=== PATIENT | female | born 1955 | race Hispanic/Latino ===

== ENCOUNTER 2017-04-15 08:00 | Inpatient (IN) | payer OTHER ==
[2017-04-23] MEDS ORDERED: Levofloxacin 500 mg/D5W 100 ml Premix Bag ONE (09:51)
[2017-04-23] MEDS ORDERED: Heparin 5,000 UNITS/ML VIAL ONE (09:51)
[2017-04-23] MEDS ORDERED: Clindamycin/D5W 900 mg/50 ml Premix Bag ONE (10:57)
[2017-04-23] MEDS ORDERED: Fentanyl 100 MCG/2 ML VIAL ONE ×2 (11:18→13:22)
[2017-04-23] MEDS ORDERED: Midazolam HCl 2 mg/2 ml Vial ONE (11:18)
[2017-04-23] MEDS ORDERED: Bupivacaine/Epinephrine 0.25% 30 ML VIAL ONE (11:20)
[2017-04-23] MEDS ORDERED: Ketorolac Tromethamine 30 MG/ML VIAL ONE (11:51)
[2017-04-23] MEDS ORDERED: Glycopyrrolate 0.2 MG/ML 5 ML SYRINGE ONE (11:51)
[2017-04-23] MEDS ORDERED: Ondansetron HCl/PF 4 MG/2 ML Vial ONE (11:51)
[2017-04-23] MEDS ORDERED: Dexamethasone 20 MG/5 ML VIAL ONE (11:51)
[2017-04-23] MEDS ORDERED: PHENYLEPHRINE-NS 100 MCG/ML 10 ML SYRINGE ONE (11:51)
[2017-04-23] MEDS ORDERED: Propofol 200 MG/20 ML VIAL ONE (11:51)
[2017-04-23] MEDS ORDERED: HYDROmorphone 2 MG/ML VIAL SLOW IVP PRN (13:44)
[2017-04-23] MEDS ORDERED: Promethazine HCl 25 MG/ML VIAL SLOW IVP PRN (13:44)
[2017-04-23] MEDS ORDERED: Promethazine HCl 25 MG/ML VIAL IM PRN ×3 (13:44→14:18)
[2017-04-23] MEDS ORDERED: Ondansetron HCl/PF 4 MG/2 ML Vial IVP PRN ×3 (13:44→14:18)
[2017-04-23] MEDS ORDERED: Zolpidem Tartrate 5 MG TAB PO PRN (13:45)
[2017-04-23] MEDS ORDERED: diphenhydrAMINE HCl 50 MG/ML 1 ML VIAL IVP PRN ×2 (13:45→14:18)
[2017-04-23] MEDS ORDERED: diphenhydrAMINE HCl 50 MG/ML 1 ML VIAL IM PRN (13:45)
[2017-04-23] MEDS ORDERED: Communication Order-Pharmacy FS SCH (13:45)
[2017-04-23] MEDS ORDERED: Fentanyl 5000 MCG/250 ML CADD IVPB PRN (13:45)
[2017-04-23] MEDS ORDERED: Naloxone HCl 0.4 mg/ml Vial IV PRN (13:45)
[2017-04-23] MEDS ORDERED: diphenhydrAMINE HCl 25 MG CAP PO PRN (13:45)
[2017-04-23] MEDS ORDERED: Fentanyl 20 MCG/ML 250 ML ONE (13:48)
[2017-04-23] MEDS ORDERED: Hydrocodone-Acetamin 15 ML UDCUP PO PRN (14:18)
[2017-04-23] MEDS ORDERED: Dextrose 50% Abboject 50 ML SYRINGE SLOW IVP PRN (14:18)
[2017-04-23] MEDS ORDERED: Dextrose 5% in Water 1,000 ML IV PRN (14:18)
[2017-04-23] MEDS: D5 1/2 NS w/20 mEq KCL 1,000 ML IV SCH ×2 (14:49→20:58)
[2017-04-23 15:53] VITALS: BMI 35.9
[2017-04-23] MEDS: Acetaminophen 1,000 MG in Premix Bag 1 BAG IVPB SCH (18:11)
[2017-04-23] MEDS: Enoxaparin Sodium 40 MG/0.4 ML SYRINGE SC SCH (20:50)
--- NOTE | 2017-04-23 23:39 | OP ---
DATE OF PROCEDURE: 04/23/2017 PREOPERATIVE DIAGNOSES: 1. Morbid obesity with the BMI of 37. 2. Hypertension. POSTOPERATIVE DIAGNOSES: 1. Morbid obesity with the BMI of 37. 2. Hypertension. 3. Hiatal hernia, paraesophageal. PROCEDURES PERFORMED: 1. Laparoscopic sleeve gastrectomy with [place] staple line reinforcements and 38 [place] bougie. 2. Hiatal hernia repair without fundoplication. SURGEON: Goran Garcia M.D. ANESTHESIA: General. ESTIMATED BLOOD LOSS: Minimal. COMPLICATIONS: None. SPECIMEN: Stomach. FINDINGS: There was a hiatal hernia present, repaired with 38 [place] bougie. INDICATION: The patient is a 62-year-old female who presents with a history of morbid obesity assoc iated with hypertension. She has attended our weight loss seminar. She had psychologic evaluation a s well as our preoperative education classes. She understands risks, benefits, alternatives to surg vinny for weight loss. She gives consent. TECHNIQUE: The patient was taken to the operating room and placed supine on the table. After gener al anesthetic was obtained, arms and legs were double strapped to bariatric table. Her abdomen was prepped and draped in a sterile fashion. Left subcostal 5-mm Optiview trocar was placed in the usua l fashion. High-flow pneumoperitoneum was obtained. Left and right abdominal 12-mm port and a righ t subcostal 5-mm port were all placed under direct visualization. A 5-mm incision was made at the x iphoid and the Yrn used to raise the liver off the GE junction. Short gastrics were taken gloria n from mid body of stomach to the left mita of the diaphragm using LigaSure. Short gastrics were ta chilango down to the distance of 6 cm proximal to the pylorus. Left mita angle of His was completely dis sected, revealing a hiatal hernia. The gastrohepatic ligament was entered and dissection was perfor med along the right mita of the diaphragm as well. The mediastinum was entered and circumferential dissection of the esophagus was performed. A 38-bougie was brought in and its tip left in the antru m of the stomach. There was a replaced right hepatic artery that was left in place and not ligated. After placement of the bougie, the posterior fascia was closed using 2-0 Ethibond sutures in a tricia e out system. Multiple loads of an [place] stapling device were used to perform the gastric sleeve. The first was a green load fired up to a distance of 6 cm proximal to the pylorus angled up toward s the incisura, multiple loads were then fired up along the bougie. Multiple loads were then fired up along the bougie. Stomach was completely transected at the angle of His. The stomach was remove d from left abdominal incision. This fascial defect was closed using GraNee needle and 0 Vicryl ti e. All port sites were infiltrated using local anesthetic. There was no bleeding on the staple june e. EGD scope was passed from the esophagus, stomach to the level of the duodenum without obstructio n, withdrawn into the stomach to reveal no stricture, no evidence of air leakage through the staple line. EGD scope was used to decompress the stomach, was pulled and removed. The Yrn retracto r was removed from the abdomen under direct visualization without bleeding. All ports were removed under direct visualization. Pneumoperitoneum was let down. Vicryl was used to close the fascial de fect from left abdominal incisions. All incisions were irrigated and closed using 4-0 Monocryl and Dermabond. The patient was en route to recovery in stable condition. All instrument counts, needle counts, and lap counts were correct.
[2017-04-24] MEDS: Acetaminophen 1,000 MG in Premix Bag 1 BAG IVPB SCH ×2 (00:16→05:54)
[2017-04-24 05:10] LABS: #Monocytes 1.2 thou/uL (0.11-0.59); #Neutrophils 9.2 thou/uL (1.40-6.50); %Basophils 0.1 % (0.0-1.0); %Eosinophils 0.2 % (0.0-10.0); %Lymphocytes 8.5 % (21.0-51.0); %Monocytes 10.7 % (0.0-10.0); Hematocrit 39.1 % (36.0-47.0); Mean Platelet Volume 8.2 fL (7.4-10.4); Red Blood Cell (RBC) Count 3.85 mill/uL (4.20-5.40); White Blood Cell (WBC) Count 11.4 thou/uL (4.8-10.8)
[2017-04-24 05:18] LABS: Anion Gap 10 mmol/L (10-20); BUN (Urea Nitrogen) 10 mg/dL (9.8-20.1); Calc. Creatinine Clearance 93 mL/min (70-130); Calcium 9.1 mg/dL (7.8-10.44); Carbon Dioxide 24 mmol/L (22-29); Chloride 107 mmol/L (98-107); Estimated GFR-MDRD 74
[2017-04-24] MEDS: D5 1/2 NS w/20 mEq KCL 1,000 ML IV SCH ×3 (05:58→22:23)
[2017-04-24] MEDS ORDERED: FLU VACC QS2017-18 36 mo. & older 0.5 ML SYRINGE IM ONE (09:00)
--- NOTE | 2017-04-24 09:31 | RAD ---
LIMITED UPPER GI WITH 15 ML GASTROGRAFIN: History: Post bariatric surgery. FINDINGS/IMPRESSION: There is a passage of contrast from the esophagus into the gastric remnant. There is significant dianna unt of residual contrast in the esophagus at the end of the exam. No contrast extravasation is seen. POS: [facility]
[2017-04-24] MEDS: Pantoprazole 40 MG VIAL IVP SCH (09:36)
--- NOTE | 2017-04-24 12:14 | DIS ---
ADMIT DIAGNOSIS: Morbid obesity. DISCHARGE DIAGNOSIS: Morbid obesity. PROCEDURES: Laparoscopic sleeve gastrectomy and hiatal hernia repair by Dr. Garcia without complic ation. CONDITION AT DISCHARGE: Improved. STAFF: Dr. Goran Garcia HOSPITAL COURSE. See hospital chart for details of hospitalization.
[2017-04-24] MEDS ORDERED: Fentanyl 100 MCG/2 ML VIAL SLOW IVP PRN ×2 (14:55)
[2017-04-24] MEDS ORDERED: GASTROGRAFIN 30 ML BOT ONE (16:16)
[2017-04-24] MEDS: Enoxaparin Sodium 40 MG/0.4 ML SYRINGE SC SCH (21:21)
[2017-04-25] MEDS: D5 1/2 NS w/20 mEq KCL 1,000 ML IV SCH (05:49)
[2017-04-25] MEDS: Pantoprazole 40 MG VIAL IVP SCH (08:12)
[2017-04-25 08:21] VITALS: BP 155/88; TEMP 98.5
--- NOTE | 2017-04-25 09:27 | DIS ---
ADMIT DIAGNOSES: Morbid obesity, hypertension. DISCHARGE DIAGNOSES: Morbid obesity, hypertension. PROCEDURES: Laparoscopic sleeve gastrectomy, EGD, hiatal hernia by Dr. Garcia without complication . CONDITION AT DISCHARGE: Improved. STAFF: Dr. Goran Garcia HOSPITAL COURSE: The patient had some postop nausea postop day 1, was watched in the hospital 1 add itional night. On postop day #2, feeling much better, tolerating the liquids. Discharged to home. All home medicines the same except she is going to hold her hydrochlorothiazide. See me back in 2 w eeks.
== END 2017-04-25 12:30 | disposition home or self-care (01) | DRG 621 ==
LOC: SURG A 04-23 08:48
PROVIDERS: ADMIT Surgery; ATTEND Surgery
PROC: 0DB64Z3 Excision of Stomach, Percutaneous Endoscopic Approach, Vertical (ICD-10-PCS; principal; 2017-04-23)
PROC: 0DJ08ZZ Inspection of Upper Intestinal Tract, Via Natural or Artificial Opening Endoscopic (ICD-10-PCS; 2017-04-23)
DX: E66.01 Morbid (severe) obesity due to excess calories (principal); I10 Essential (primary) hypertension; K44.9 Diaphragmatic hernia without obstruction or gangrene; Z68.36 Body mass index [BMI] 36.0-36.9, adult
CPT/HCPCS: 36415; 74241; 80048; 85025; 88307; 88312; 90471; 90682; 94760; C9113; G0008; J0131; J1100; J1170; J1644; J1650; J1885; J1956; J2250; J2405; J2704; J3010; J3490; Q2036

== ENCOUNTER 2017-04-15 08:08 | Outpatient (CLI) | payer OTHER ==
[2017-04-15 09:40] LABS: Hematocrit 41.7 % (36.0-47.0); Red Blood Cell (RBC) Count 4.14 mill/uL (4.20-5.40); White Blood Cell (WBC) Count 8.4 thou/uL (4.8-10.8)
[2017-04-15 09:51] LABS: Hemoglobin A1c 5.2 % (4.0-6.0)
[2017-04-15 09:54] LABS: ALT (SGPT) 17 U/L (8-55); AST (SGOT) 17 U/L (5-34); Alkaline Phosphatase 68 U/L (40-150); Anion Gap 13 mmol/L (10-20); BUN (Urea Nitrogen) 24 mg/dL (9.8-20.1); Bilirubin, Direct 0.2 mg/dL (0.1-0.3); Bilirubin, Total 0.5 mg/dL (0.2-1.2); Calc. Creatinine Clearance 0 mL/min (70-130); Calcium 9.9 mg/dL (7.8-10.44); Carbon Dioxide 24 mmol/L (22-29); Chloride 105 mmol/L (98-107); Estimated GFR-MDRD 79; Globulin 3.3 g/dL (2.4-3.5); Protein, Total 7.4 g/dL (6.0-8.3)
--- NOTE | 2017-04-15 10:23 | RAD ---
EXAM: CHEST 2 VIEWS: HISTORY: Preoperative exam. COMPARISON: None. FINDINGS: Normal cardiac silhouette. The pulmonary vessels and hilum are normal. No masses or consolidation. No pneumothorax or osseous abnormalities. IMPRESSION: No acute cardiopulmonary process. POS: [facility]
--- NOTE | 2017-04-18 06:50 | EKG ---
Test Reason : Blood Pressure : / mmHG Vent. Rate : 073 BPM Atrial Rate : 073 BPM P-R Int : 128 ms QRS Dur : 094 ms QT Int : 400 ms P-R-T Axes : 010 -10 019 degrees QTc Int : 440 ms Normal sinus rhythm Normal ECG When compared with ECG of 02-JUL-2014 12:18, No significant change was found Confirmed by FREDI ORTA ([id number]) on 04/18/2017 6:49:51 AM Referred By: KOSTA Confirmed By:FREDI ORTA
== END 2017-04-15 08:09 | disposition home or self-care (01) ==
LOC: LABBT 08:08
PROVIDERS: ATTEND Surgery
DX: Z01.818 Encounter for other preprocedural examination (principal); E66.01 Morbid (severe) obesity due to excess calories
CPT/HCPCS: 71020; 80053; 80076; 83036; 85027; 93005; 93010

== ENCOUNTER 2017-09-06 10:24 | Outpatient (CLI) | payer OTHER ==
[2017-09-06 11:08] LABS: Hemoglobin 14.2 g/dL (12.0-16.0); Mean Corpuscular HGB CONC 33.1 g/dL (32.0-36.0); Mean Corpuscular Hemoglobin 31.5 pg (27.0-31.0); Mean Corpuscular Volume 95.2 fl (81.0-99.0); Platelet Count 210 thou/uL (130-400); RBC Distribution Width 13.6 % (11.5-14.5); Red Blood Cell (RBC) Count 4.52 mill/uL (4.20-5.40); White Blood Cell (WBC) Count 6.5 thou/uL (4.8-10.8)
[2017-09-06 11:27] LABS: Anion Gap 11 mmol/L (10-20); BUN (Urea Nitrogen) 13 mg/dL (9.8-20.1); Calc. Creatinine Clearance 0 mL/min (70-130); Calcium 9.8 mg/dL (7.8-10.44); Carbon Dioxide 28 mmol/L (22-29); Chloride 106 mmol/L (98-107); Estimated GFR-MDRD 78; Glucose 98 mg/dL (70-105); Potassium 4.1 mmol/L (3.5-5.1); Sodium 141 mmol/L (136-145)
== END 2017-09-06 10:25 | disposition home or self-care (01) ==
LOC: LABBT 10:24
PROVIDERS: ATTEND Orthopaedic Surgery Hand Surgery
DX: Z01.812 Encounter for preprocedural laboratory examination (principal); M65.30 Trigger finger, unspecified finger
CPT/HCPCS: 80048; 85027

== ENCOUNTER 2017-09-13 11:06 | Day surgery (SDC) | payer OTHER ==
[2017-09-06 10:36] VITALS: BMI 30.1
[~2017-09-13 11:06] MED LIST: Lidocaine 1% PF 5 ML VIAL ONE; PROPOFOL 200 MG/20 ML VIAL ONE
[2017-09-13] MEDS ORDERED: Fentanyl 250 MCG/5 ML VIAL ONE (12:48)
[2017-09-13] MEDS ORDERED: Bacitracin Zinc Ointment 30 gm TUBE ONE (12:51)
[2017-09-13] MEDS ORDERED: Bupivacaine 0.5% 10 ML VIAL ONE ×2 (12:51)
[2017-09-13] MEDS ORDERED: Betamet Acet/Betamet Na Ph 30 MG/5 ML VIAL ONE (12:51)
[2017-09-13] MEDS ORDERED: Clindamycin/D5W 900 mg/50 ml Premix Bag ONE (13:32)
[2017-09-13] MEDS ORDERED: Ketorolac Tromethamine 30 MG/ML VIAL ONE (15:03)
--- NOTE | 2017-09-16 13:47 | OP ---
DATE OF PROCEDURE: 09/13/2017 SURGEON: Jaylan Quiroz M.D. ANESTHESIA: General LMA technique by medical history augmented by local field blockade, total of 10 mL PROCEDURES PERFORMED: 1. Right middle finger A1 tyra release. 2. Right middle finger flexor digitorum profundus, radical flexor tenosynovectomy and right flexor d igitorum profundus radical tenosynovectomy. ESTIMATED BLOOD LOSS: 10 mL TOURNIQUET TIME: 11 minutes. COMPLICATIONS: None. SPECIMEN SENT: None. DESCRIPTION OF PROCEDURE: After successful general LMA technique, limb was prepped and draped. Once the patient was anesthetized, we then placed a field block along the wound and any other wound possi ble for that might be extended. We then exsanguinated the limb, inflated tourniquet 250 mmHg, and co mpleted timeout procedures appropriately and then began to exsanguinate the limb. After exsanguinati on, limb was inflated 250 mmHg pressure. We then made an oblique incision zigzag just parallel to the midline of the middle finger, carried do wn through skin and subcutaneous tissue, identifying all the sensory nerves and spared then by gentle retraction. We then saw a very tight band, which represented A1 tyra, no A2 involvement, and we r eleased this band without complications.
== END 2017-09-13 15:35 | disposition home or self-care (01) ==
LOC: SDC 11:06
PROVIDERS: ATTEND Orthopaedic Surgery Hand Surgery
PROC: 0LN70ZZ Release Right Hand Tendon, Open Approach (ICD-10-PCS; principal; 2017-09-13)
DX: M65.331 Trigger finger, right middle finger (principal); M06.9 Rheumatoid arthritis, unspecified; J45.909 Unspecified asthma, uncomplicated; G43.909 Migraine, unspecified, not intractable, without status migrainosus; M79.7 Fibromyalgia; M18.0 Bilateral primary osteoarthritis of first carpometacarpal joints; Z79.51 Long term (current) use of inhaled steroids; Z79.899 Other long term (current) drug therapy; Z88.0 Allergy status to penicillin; Z88.8 Allergy status to other drugs, medicaments and biological substances; Z98.890 Other specified postprocedural states
CPT/HCPCS: 96374; J0702; J1885; J2001; J2704; J3010; J3490

== ENCOUNTER 2018-01-10 10:00 | Outpatient (CLI) | payer OTHER ==
--- NOTE | 2018-01-10 13:21 | RAD ---
CHEST TWO VIEWS: HISTORY: Preoperative. COMPARISON: 04/15/2017 FINDINGS: The cardiac silhouette and pulmonary vasculature are unremarkable. The mediastinum is midline. No c onfluent air space consolidation, pneumothorax, or pleural fluid. IMPRESSION: No active cardiopulmonary abnormalities are demonstrated. POS: [facility]
== END 2018-01-10 10:01 | disposition home or self-care (01) ==
LOC: LABBT 10:00
PROVIDERS: ATTEND Orthopaedic Surgery Hand Surgery
DX: Z01.818 Encounter for other preprocedural examination (principal); G56.02 Carpal tunnel syndrome, left upper limb; M18.9 Osteoarthritis of first carpometacarpal joint, unspecified
CPT/HCPCS: 71046

== ENCOUNTER 2018-01-14 06:01 | Day surgery (SDC) | payer OTHER ==
[2018-01-10 10:34] VITALS: BMI 28.4
[2018-01-14] MEDS ORDERED: Sodium Chloride 0.9% 10 ML ONE (07:00)
[2018-01-14] MEDS ORDERED: Bacitracin Zinc Ointment 30 gm TUBE ONE (07:00)
[2018-01-14] MEDS ORDERED: Bupivacaine PF 0.5% 30 ML VIAL ONE (07:00)
[2018-01-14] MEDS ORDERED: Betamet Acet/Betamet Na Ph 30 MG/5 ML VIAL ONE (07:00)
[2018-01-14] MEDS ORDERED: Midazolam HCl 2 mg/2 ml Vial ONE (07:06)
[2018-01-14] MEDS ORDERED: Fentanyl 100 MCG/2 ML VIAL ONE ×2 (07:07→07:28)
[2018-01-14] MEDS ORDERED: Clindamycin/D5W 600 mg/50 ml Premix Bag ONE (07:34)
[2018-01-14] MEDS ORDERED: Bupivacaine HCl 0.5%/Epinephrine 1:200,000/PF 30 ml Vial ONE (11:19)
[2018-01-14] MEDS ORDERED: PROPOFOL 200 MG/20 ML VIAL ONE (11:24)
[2018-01-14] MEDS ORDERED: Lidocaine 1% PF 5 ML VIAL ONE (11:24)
[2018-01-14] MEDS ORDERED: Ondansetron HCl/PF 4 MG/2 ML Vial ONE (11:24)
[2018-01-14] MEDS ORDERED: Promethazine HCl 25 MG/ML VIAL ONE (11:27)
--- NOTE | 2018-01-14 18:32 | RAD ---
LEFT WRIST TWO VIEW 01/14/18 HISTORY: Arthroplasty left wrist. COMPARISON: None. FINDINGS: Multiple intraoperative radiographs performed for surgical use. IMPRESSION: Radiography for surgical use. POS: [facility]
--- NOTE | 2018-01-16 10:27 | OP ---
DATE OF PROCEDURE: 01/14/2018 FINDINGS: 1. Osteoarthritis, left thumb carpometacarpal joint: The patient had 70% chondral loss trapezial si de of the joint and 6% cartilage loss on the metacarpal side of the joint with osteophytes at the bas e of the thumb. 2. Carpal tunnel syndrome, left: 1 cm area of stippling without true hourglass formation, mid porti on of the transverse carpal ligament at the left carpal tunnel. PROCEDURES PERFORMED: 1. Left carpal tunnel release. 2. Left carpometacarpal joint ligament replacement tendon in position: Used flexi carpi radialis ridley rvested from far. SPECIMEN REMOVED: Trapezium: A complete trapeziectomy performed, but not sent to the lab. BLOOD LOSS: 15 mL or less. TOURNIQUET TIME: 125 minutes. INDICATION: The patient has had multiple injections of both the carpal tunnel as well as thumb carpo metacarpal joint of the last 9 months where she had phase 3 radiographic changes at this time and tika led to achieve proper resolution at this left nondominant upper extremity. DESCRIPTION OF PROCEDURE: After successful general endotracheal anesthesia, the patient was prepped and draped. We had already marked the side and the scheduled procedure, planned procedure, the conse nt of procedure and the records all matched. We then outlined a modified hockey stick incision over the junction of the palmar and dorsal skin incision over the carpometacarpal joint of the left thumb as well as an incision in line with the ring finger in Bynum's cardinal line distally and proximally at the full wrist flexion crease 5 mm distally. We then exsanguinated the limb, inflated the tourniquet to 250 mmHg pressure. We approached the carpal tunnel release first entering along a 2.5 cm area in line with the outlined incision detailed above. This incision was carried through skin and subcutaneous tissue until we had reached the transverse carpal ligament. Protecting all neurovascular structures and under direct vi sualization, a [place] blade was used to enter the transverse carpal ligament from its mid portion dis tally. We protected ulnar digital nerve branches to include the motor branch which was a type 1 etio logy. We then were able to do the same from the mid portion proximally at which point we proceeded to do so . When we visualized the median nerve, there was stippling of 1 cm area without hourglass formation and we began to see that there was no evidence of flexor tenosynovitis. We then closed the carpal tu nnel release incision with 4-0 nylon interrupted mattress pattern after placing 3 mL of Celestone Afshan uspan liquid along the nerve course. At this point, we turned our attention to the outline hockey stick incision over the carpometacarpal joint of the ipsilateral left thumb. It was carried through skin and subcutaneous tissue until we vi sualized the radial nerve branch protected and the fascia insertion of the thenar musculature was sep arated from the bone. We then gently visualized the carpometacarpal joint capsule, entered it longit udinally, placed two stay sutures of 2-0 Vicryl. We decided to protect it and dissected the entire r adial side of the carpometacarpal joint free protecting the artery. We then visualized the flexor ca rpi radialis tendon entering the palmar surface near the joint, from the trapezium and then visualized the scaphoid and protecting the flexor brachialis completely free the trapezium on its ul franck and dorsal side. Now, we could protect the flexor carpi radialis and we then performed a complet e facetectomy. We placed a 3-0 Prolene suture, RB-1, sutured deep and on the index finger side of th e joint capsule for later securing of the flexor carpi radialis final tendon mass. Returned the thumb metacarpal base until we removed all osteophytes with a rongeur, and at that point , we drilled a 2.5 drill in line with the plane of the thumb. Again, an oblique only radial aspect w ith a 12 mm space between this and the articular surface and he did not just above the articular surf re at the webspace. We drilled this to a 3.5 with another drill over the same site, used curet to e nlarge the opening and proceeded to harvest the flexor carpi radialis tendon in its usual manner brin ging it into the wound. We then brought it into the tunnel, secured it in three places, passed it underneath the abductor jonatan licis longus securing it here, then secured it into the flexor carpi radialis itself and the capsule. Before we tied it, we pinned it in position metacarpal of the thumb to the index finger metacarpal with a 3 mm exaggerated space. We now did the anchovy reamed with the 3-0 Prolene previously inserted into the capsule using Blayne n eedles x2, the contract administrative assistant held it in place deep and we tied it and placed securely. There was no migr ation. The K-wire was seen on the C-arm in anatomical position. Released the tourniquet, we closed the capsule over the anchovy LRTI graft. We obtained hemostasis, put the fascia back to itself with a 2-0 Vicryl, closed the harvest site subcutaneous wound at the pr imary thumb incision with a 3-0 Monocryl, running fashion and then proceeded to close the skin with i nterrupted 4-0 nylons at all sites. We then cut the K-wire to the point where it was slightly outsid e the skin but bent, placed bacitracin, Adaptic, 4 x 4s, Kerlix on the incisions, a thumb spica splin t 4 inches wide was placed short arm length and the patient left the operating room without complicat ions.
== END 2018-01-15 13:00 | disposition home or self-care (01) ==
LOC: SDC 06:01
PROVIDERS: ATTEND Orthopaedic Surgery Hand Surgery
PROC: 0RRP0JZ Replacement of Left Wrist Joint with Synthetic Substitute, Open Approach (ICD-10-PCS; principal; 2018-01-14)
PROC: 01N50ZZ Release Median Nerve, Open Approach (ICD-10-PCS; principal; 2018-01-14)
DX: G56.02 Carpal tunnel syndrome, left upper limb (principal); M18.9 Osteoarthritis of first carpometacarpal joint, unspecified; Z88.0 Allergy status to penicillin; Z79.899 Other long term (current) drug therapy
CPT/HCPCS: 76001; 96374; A4216; J0670; J0702; J2001; J2250; J2405; J2550; J2704; J3010; J3490; S0020

== ENCOUNTER 2018-01-27 10:45 | Outpatient (CLI) | payer OTHER ==
--- NOTE | 2018-01-27 12:13 | RAD ---
TWO VIEWS RIGHT HIP: History: Right hip pain. FINDINGS: AP and frogleg views right hip were obtained on 01-27-18. Comparison: 03-16-15 FINDINGS: Two views of the right hip demonstrate no evidence of right hip fractures, subluxations, or bony lesi ons. IMPRESSION: Normal two views right hip. POS: [facility]
== END 2018-01-27 10:46 | disposition home or self-care (01) ==
LOC: RAD 10:45
PROVIDERS: ATTEND Internal Medicine
DX: M25.551 Pain in right hip (principal)

== ENCOUNTER 2018-04-08 07:49 | Outpatient (CLI) | payer OTHER | END 2018-04-08 07:50 | disposition home or self-care (01) | LOC: BICMAMMO 07:49 | PROVIDERS: ATTEND Advanced Practice Midwife | DX: Z12.31 Encounter for screening mammogram for malignant neoplasm of breast (principal); Z13.820 Encounter for screening for osteoporosis; M81.0 Age-related osteoporosis without current pathological fracture | CPT/HCPCS: 77063; 77067; 77080 ==

== ENCOUNTER 2019-06-03 10:16 | Outpatient (CLI) | payer OTHER ==
--- NOTE | 2019-06-03 10:36 | RAD ---
2 view chest: [06/03/2019] Comparion:05/18/2015 HISTORY: Chest congestion with cough and fever FINDINGS: Heart and mediastinal contours are grossly unremarkable. No pneumothorax or pleural fluid. No focal consolidation or alveolar edema. IMPRESSION: No acute findings.
== END 2019-06-03 10:17 | disposition home or self-care (01) ==
LOC: RAD 10:16
PROVIDERS: ATTEND Internal Medicine Rheumatology
DX: R06.02 Shortness of breath (principal)
CPT/HCPCS: 71046

== ENCOUNTER 2019-06-29 15:48 | Outpatient (CLI) | payer OTHER ==
--- NOTE | 2019-06-29 16:58 | MMO ---
Bilateral MAMMO Bilat Screen [facility]. CLINICAL HISTORY: Patient is 64 years old and is seen for screening. The patient has no family history of breast cancer. The patient has no personal history of cancer. VIEWS: The views performed were: bilateral craniocaudal with tomosynthesis and bilateral mediolateral oblique with tomosynthesis. FILMS COMPARED: The present examination has been compared to a prior imaging study performed at [facility] on 04/08/2018. This study has been interpreted with the assistance of computer-aided detection. MAMMOGRAM FINDINGS: There are scattered fibroglandular densities. There are stable benign appearing calcifications seen in both breasts. There are no suspicious masses, suspicious calcifications, or new areas of architectural distortion. IMPRESSION: THERE IS NO MAMMOGRAPHIC EVIDENCE OF MALIGNANCY. A ROUTINE FOLLOW-UP MAMMOGRAM IN 1 YEAR IS RECOMMENDED. THE RESULTS OF THIS EXAM WERE SENT TO THE PATIENT. ACR BI-RADS Category 2 - Benign finding MAMMOGRAPHY NOTE: 1. A negative mammogram report should not delay a biopsy if a dominant of clinically suspicious mass is present. 2. Approximately 10% to 15% of breast cancers are not detected by mammography. 3. Adenosis and dense breasts may obscure an underlying neoplasm. Reported by: MANSI MULLINS MD Electonically Signed: [id number]
== END 2019-06-29 15:49 | disposition home or self-care (01) ==
LOC: BICMAMMO 15:48
PROVIDERS: ATTEND Internal Medicine
DX: Z12.31 Encounter for screening mammogram for malignant neoplasm of breast (principal)
CPT/HCPCS: 77063; 77067

== ENCOUNTER 2019-07-03 08:11 | Outpatient (CLI) | payer OTHER ==
[2019-07-03 09:18] LABS: Bacteria/HPF None Seen HPF (None Seen); Bilirubin Negative (Negative); Blood, Urine Negative (Negative); Clarity Clear (Clear); Glucose, Urine (Dipstick) Normal (Negative); Leukocyte 250 Leu/uL (Negative); Nitrite Negative (Negative); Protein, Urine (Dipstick) 20 mg/dL (Neg-Trace); RBC/HPF 0-3 HPF (0-3); WBC/HPF 0-3 HPF (0-3)
[2019-07-03 09:34] LABS: #Basophils 0.1 thou/uL (0.0-0.2); #Eosinphils 0.3 thou/uL (0.0-0.7); #Lymphocytes 2.1 thou/uL (1.20-3.40); #Monocytes 0.7 thou/uL (0.11-0.59); #Neutrophils 4.1 thou/uL (1.40-6.50); %Basophils 0.7 % (0.0-1.0); %Eosinophils 4.3 % (0.0-10.0); %Monocytes 9.1 % (0.0-10.0); %Neutrophils 56.9 % (42.0-75.0); Hemoglobin 14.5 g/dL (12.0-16.0); Mean Corpuscular HGB CONC 32.9 g/dL (32.0-36.0); Mean Corpuscular Hemoglobin 32.7 pg (27.0-31.0); Mean Corpuscular Volume 99.2 fL (78.0-98.0); Platelet Count 264 thou/uL (130-400); RBC Distribution Width 12.4 % (11.5-14.5); Red Blood Cell (RBC) Count 4.43 mill/uL (4.20-5.40); White Blood Cell (WBC) Count 7.1 thou/uL (4.8-10.8)
[2019-07-03 09:36] LABS: Anion Gap 15 mmol/L (10-20); BUN (Urea Nitrogen) 16 mg/dL (9.8-20.1); Calc. Creatinine Clearance 0 mL/min (70-130); Calcium 10.2 mg/dL (7.8-10.44); Carbon Dioxide 24 mmol/L (23-31); Chloride 107 mmol/L (98-107); Estimated GFR-MDRD 75; Glucose 112 mg/dL (80-115); Potassium 3.6 mmol/L (3.5-5.1); Sodium 142 mmol/L (136-145)
== END 2019-07-03 08:12 | disposition home or self-care (01) ==
LOC: LABBT 08:11
PROVIDERS: ATTEND Orthopaedic Surgery Hand Surgery
DX: Z01.818 Encounter for other preprocedural examination (principal); M18.11 Unilateral primary osteoarthritis of first carpometacarpal joint, right hand
CPT/HCPCS: 80048; 81001; 85025; 93005; 93010

== ENCOUNTER 2019-07-06 13:02 | Day surgery (SDC) | payer OTHER ==
[2019-07-03 08:19] VITALS: BMI 30.7
[2019-07-06] MEDS ORDERED: Clindamycin/D5W 600 mg/50 ml Premix Bag ONE (13:44)
[2019-07-06] MEDS ORDERED: Fentanyl 100 MCG/2 ML VIAL ONE ×3 (14:06→18:08)
[2019-07-06] MEDS ORDERED: Midazolam HCl 2 mg/2 ml Vial ONE (14:06)
[2019-07-06] MEDS ORDERED: Sodium Chloride 0.9% 10 ML ONE (15:39)
[2019-07-06] MEDS ORDERED: Bupivacaine PF 0.5% 30 ML VIAL ONE (15:39)
[2019-07-06] MEDS ORDERED: Betamet Acet/Betamet Na Ph 30 MG/5 ML VIAL ONE (15:39)
[2019-07-06] MEDS ORDERED: Bacitracin Zinc Ointment 30 gm TUBE ONE (15:39)
[2019-07-06] MEDS ORDERED: Ketorolac Tromethamine 30 MG/ML VIAL ONE (19:04)
--- NOTE | 2019-07-07 01:14 | OP ---
DATE OF PROCEDURE: 07/06/2019 PREOPERATIVE DIAGNOSES: Right thumb carpometacarpal joint osteoarthritis, severe findings, 90% involvement, completely arthritic of the trapezium, and 80% involvement with osteophytes and arthritis of the base of the thumb. POSTOPERATIVE DIAGNOSES: Right thumb carpometacarpal joint osteoarthritis, severe findings, 90% involvement, completely arthritic of the trapezium, and 80% involvement with osteophytes and arthritis of the base of the thumb. PROCEDURES PERFORMED: 1. Right thumb ligament replacement and tendon interposition. 2. Flexor carpi radialis transfer, right. 3. Complete trapeziectomy, right wrist. 4. C-arm supervision. SPECIMEN REMOVED: Trapezium, but not sent as specimen to the lab. TOURNIQUET TIME: 95 minutes. ESTIMATED BLOOD LOSS: Less than equal to 20 mL. COMPLICATIONS: None. DESCRIPTION OF PROCEDURE: After successful general endotracheal anesthesia, limb was prepped and draped. The patient also had a block preop, which was highly successful before we entered the operating room. The patient then had the time-out done appropriately, we did a J-shaped incision over the junction of dorsal and palmar skin, centered on the carpometacarpal joint and then two incisions over the flexor carpi radialis, each one 6 inches from the other. We then exsanguinated the limb, inflated tourniquet to 250 mmHg pressure, and then made incision through skin and subcutaneous tissue, and then dissected bluntly the nerves away from the center of the field. We entered the nerves plane and released the fascia over the thenar muscles circumferentially and lifted them off the abductor pollicis group. We then were able to visualize the joint capsule and split this underneath the abductor pollicis and tagged both ends with a 2-0 Vicryl. Now, we could visualize the joint. We placed a 6.2 threaded wire into the trapezium, identified this on radiographs and now, we then began 360 degree circumferential removal of soft tissue to excise the trapezium. We protected the flexor carpi radialis throughout the entire time and then lifted trapezium out, where we saw 90% involvement of loss of chondral surface trapezium, large osteophytes and 80% loss of chondral surface base of thumb. We resected osteophytes. We placed a heavy 3-0 Prolene deep and ulnar capsule. We then placed appropriate tension and removed the osteophytes off the thumb circumferentially at its base and metacarpal and then at a 0.12 mm distal to the radial edge of the thumb metacarpal, found a spot on the lateral wall, removed all neurovascular bundle and soft tissue and protected it, and then drilled for approximately 40 degrees angle obliquely until we entered with a 2.5 drill bit at the junction of the chondral surface and the metacarpal base. We then expanded this with a 3.5 drill bit. We irrigated and placed a moist sponge here. Attention was turned to the 2 incisions outlined the harvest, flexor carpi radialis tendon. We entered both sharply, dissected out the flexor carpi radialis, first 6 inches from the wrist and then 6 inches proximal to this. We had to go at the muscular tendon junction and removed a small amount of muscle, but the entire tendon. Brought this into the intermediate wound, removed all muscle, and then brought this into the wrist. We then placed the Vicryl on the suture, Vicryl on the tendon, and passed it through the previously drilled tunnel in the base of the thumb metacarpal. We then reduced the thumb metacarpal of the thumb to the first metacarpal, reproduced the [place] line with no excessive separation and then an approximately 60-degree abduction angle, we pinned the first to the second metacarpal with excellent stability and radiographic appearance. We then secured the tension under full tension the tendon to two sites on the metacarpal base, two on the abducted group after it was weaved underneath, and onto the lateral wall. These were done with 3-0 Prolene. Finally, we used the heavy 3-0 Prolene. After visualizing excellent tension on the flexor carpi radialis, we entered the thumb and exited, to create an anchovy affect with 2 Blayne needles. We tied this and it was deep and the cavity released, created by trapeziectomy. We closed the capsule and we closed the thenar muscle back to its origin to fascia closure using 2-0 Vicryl interrupted. We released the tourniquet, obtained hemostasis. We closed all incisions with a running 4-0 Monocryl undyed and then placed Steri-Strips on the skin with benzoin. The patient had a splint applied, thumb spica. Left the operating room without evidence of anesthetic or operative complication. Michael ID: [id number]
--- NOTE | 2019-07-09 15:34 | RAD ---
FINGERS RIGHT HAND: 07/09/19 Three fluoroscopic views from OR presented. INDICATIONS: Right finger arthroplasty procedure. Intraoperative imaging. FINDINGS/IMPRESSION: Retractors and pin overlie the trapezium at the first carpometacarpal joint. POS: [facility]
== END 2019-07-06 21:27 | disposition home or self-care (01) ==
LOC: SDC 13:02
PROVIDERS: ATTEND Orthopaedic Surgery Hand Surgery
PROC: 0RQS0ZZ Repair Right Carpometacarpal Joint, Open Approach (ICD-10-PCS; principal; 2019-07-06)
PROC: 0LX50ZZ Transfer Right Lower Arm and Wrist Tendon, Open Approach (ICD-10-PCS; principal; 2019-07-06)
DX: M18.11 Unilateral primary osteoarthritis of first carpometacarpal joint, right hand (principal); Z79.899 Other long term (current) drug therapy; Z88.0 Allergy status to penicillin; Z88.1 Allergy status to other antibiotic agents; Z88.6 Allergy status to analgesic agent
CPT/HCPCS: 76000; J0702; J1885; J2250; J3010; J3490; S0020

== ENCOUNTER 2019-11-30 16:12 | Outpatient (CLI) | payer OTHER ==
--- NOTE | 2019-11-30 16:41 | RAD ---
RIGHT ANKLE THREE VIEWS: History: Right ankle pain. FINDINGS: Ankle mortise is maintained. No fracture, dislocation, or bony destruction is seen. POS: [facility]
--- NOTE | 2019-11-30 16:42 | RAD ---
RIGHT FOOT THREE VIEWS: History: Foot pain. FINDINGS: The tarsals appear unremarkable. Tarsal metatarsal alignment is normal. Metatarsals and phalanges int act. Mild DJD at the first MTP joint. No acute abnormality. The other MTP joints and IP joints appear unremarkable. IMPRESSION: No acute finding. Very mild DJD at the first MTP joint. POS: [facility]
== END 2019-11-30 16:13 | disposition home or self-care (01) ==
LOC: RAD 16:12
PROVIDERS: ATTEND Internal Medicine Rheumatology
DX: M25.571 Pain in right ankle and joints of right foot (principal); M19.071 Primary osteoarthritis, right ankle and foot

== ENCOUNTER 2020-07-12 12:00 | Outpatient (CLI) | payer OTHER ==
--- NOTE | 2020-07-12 14:01 | RAD ---
TWO VIEW CHEST: 07/12/20 HISTORY: Pneumonia. COMPARISON: 06/30/20 and 06/28/20. FINDINGS: The lungs appear clear today. The infiltrate in the right lower lung noted on 06/28/20 is not apparen t on today's study. Heart and mediastinum unremarkable. Vasculature normal. IMPRESSION: No evidence of infiltrate. POS: [facility]
== END 2020-07-12 12:01 | disposition home or self-care (01) ==
LOC: RAD 12:00
PROVIDERS: ATTEND Internal Medicine
DX: J18.9 Pneumonia, unspecified organism (principal); E87.6 Hypokalemia; R53.1 Weakness; R53.83 Other fatigue; D53.9 Nutritional anemia, unspecified; R79.89 Other specified abnormal findings of blood chemistry
CPT/HCPCS: 36415; 71046; 80053; 82607; 83036; 83540; 83735; 85025

== ENCOUNTER 2020-08-11 15:09 | Outpatient (CLI) | payer OTHER | END 2020-08-11 15:10 | disposition home or self-care (01) | LOC: BICMAMMO 15:09 | PROVIDERS: ATTEND Internal Medicine | DX: Z12.31 Encounter for screening mammogram for malignant neoplasm of breast (principal); Z13.820 Encounter for screening for osteoporosis; Z78.0 Asymptomatic menopausal state | CPT/HCPCS: 77063; 77067; 77080 ==

== ENCOUNTER 2022-03-29 10:15 | Outpatient (CLI) | payer BC, MEDICARE | END 2022-03-29 10:16 | disposition home or self-care (01) | LOC: RAD 10:15 | PROVIDERS: ATTEND Internal Medicine Critical Care Medicine | DX: R06.00 Dyspnea, unspecified (principal) | CPT/HCPCS: 71046 ==

== ENCOUNTER 2022-10-25 13:06 | Outpatient (CLI) | payer MEDICARE | END 2022-10-25 13:07 | disposition home or self-care (01) | LOC: BICMAMMO 13:06 | PROVIDERS: ATTEND Internal Medicine | DX: Z12.31 Encounter for screening mammogram for malignant neoplasm of breast (principal) | CPT/HCPCS: 77063; 77067 ==

== ENCOUNTER 2023-09-06 09:38 | Outpatient (CLI) | payer MEDICARE | END 2023-09-06 09:39 | disposition home or self-care (01) | LOC: SCSMRI 09:38 | PROVIDERS: ATTEND Orthopaedic Surgery | DX: M17.11 Unilateral primary osteoarthritis, right knee (principal); S83.281A Other tear of lateral meniscus, current injury, right knee, initial encounter; M25.461 Effusion, right knee; M71.21 Synovial cyst of popliteal space [Baker], right knee; M94.8X8 Other specified disorders of cartilage, other site ==